=== PATIENT | female | born 1985 | race Two or more races ===

== ENCOUNTER 2020-12-27 20:02 | Emergency (ER) | payer OTHER ==
[~2020-12-27] VITALS: Ht 162.6 cm; Wt 109.1 kg
[2020-12-27 20:27] VITALS: BP 131/84
--- NOTE | 2020-12-27 20:33 | NUR ---
one safe placed contacted
--- NOTE | 2020-12-27 20:33 | NUR ---
CALL OUT TO [facility] TO REPORT INCIDENT, OFFICER TO CONTACT THE PATIENT OR NURSE
--- NOTE | 2020-12-27 22:00 | NUR ---
[employer] AND [employer] ARE WITH THE PATIENT. STILL NO WORD ON KIT APROVAL AT THIS TIME.
[2020-12-28 00:16] LABS: URINE HCG NEGATIVE (NEG)
[2020-12-28 00:39] LABS: URINE AMPHETAMINE SCREEN NEGATIVE (Neg); URINE BARBITUATE SCREEN NEGATIVE (Neg); URINE BENZODIAZEPINES SCREEN NEGATIVE (Neg); URINE CANNABINOID SCREEN NEGATIVE (Neg); URINE COCAINE SCREEN NEGATIVE (Neg); URINE METHADONE SCREEN NEGATIVE (Neg); URINE OPIATE SCREEN NEGATIVE (Neg); URINE PHENCYCLIDINE SCREEN NEGATIVE (Neg)
[2020-12-28] MEDS ORDERED: metroNIDAZOLE 500mg tablet PO ONE (02:00)
[2020-12-28] MEDS ORDERED: azithromycin 250mg tablet PO ONE (02:00)
[2020-12-28] MEDS ORDERED: LEVONORGESTREL 1.5 MG (Plan B One-Step) TABLET PO (02:00)
--- NOTE | 2020-12-28 02:57 | NUR ---
Pt was seen by Dr. Penny prior to start of SART exam 0000 Pt walked back to SART room with [facility] advocate Maryam, urine collected on the way and sent to lab. 0005 Signed consents and went over paperwork with pt. 0015 Began SART exam per protocol no photographs taken, no physical findings or injuries noted 0030 physical exam and swabs collected per protocol 0150 Zithromax PO, Flagyl PO, and Plan B 1 step PO given to Pt. Pt declined IM rocephin adn states she will follow up to get tested for gonorrhea. Pt states injections make her nauseated. 0215 Pt offered a shower which she declined, given food and water before D/C.
--- NOTE | 2020-12-28 03:00 | NUR ---
CALLED FOR SART KIT TO BE PICKE UP
--- NOTE | 2020-12-28 04:37 | NUR ---
Officer Mikala licea number [id number] picked up SART kit. RADS placed in mail.
== END 2020-12-28 02:15 | disposition home or self-care (01) ==
LOC: ER 20:03 → EEVIPCON 20:03 → ER 12-28 02:15
DX: T76.21XA Adult sexual abuse, suspected, initial encounter (principal); F32.9 Major depressive disorder, single episode, unspecified; Z88.8 Allergy status to other drugs, medicaments and biological substances; Z91.040 Latex allergy status
CPT/HCPCS: 80305; 81025; 87088; 99284; J3490